=== PATIENT | female | born 1950 | race Caucasian/White ===

== ENCOUNTER 2022-04-16 15:34 | Emergency (ER) | payer MEDICARE, OTHER ==
[~2022-04-16 15:34] MED LIST: Iopamidol 370 76% 125 ML VIAL FS ONE
[2022-04-16 16:05] LABS: #Basophils 0.1 thou/uL (0.0-0.2); #Eosinphils 0.1 thou/uL (0.0-0.7); #Lymphocytes 1.4 thou/uL (1.20-3.40); #Monocytes 0.9 thou/uL (0.11-0.59); #Neutrophils 6.6 thou/uL (1.40-6.50); %Basophils 1.5 % (0.0-1.0); %Eosinophils 1.1 % (0.0-10.0); %Lymphocytes 15.6 % (21.0-51.0); %Monocytes 9.4 % (0.0-10.0); %Neutrophils 72.3 % (42.0-75.0); Hemoglobin 13.2 g/dL (12.0-16.0); Mean Corpuscular HGB CONC 31.2 g/dL (32.0-36.0); Mean Corpuscular Hemoglobin 29.8 pg (27.0-31.0); Mean Corpuscular Volume 95.5 fL (78.0-98.0); Mean Platelet Volume 6.7 fL (7.4-10.4); Platelet Count 305 thou/uL (130-400); Red Blood Cell (RBC) Count 4.45 mill/uL (4.20-5.40); White Blood Cell (WBC) Count 9.1 thou/uL (4.8-10.8)
[2022-04-16] MEDS ORDERED: methylPREDNISolone Sod Succ/PF 125 MG/2 ML VIAL ONE (16:15)
[2022-04-16 16:19] LABS: Base Excess-Venous 5.1 mmol/L (-2.0 to 3.0); Bicarbonate (HCO3v) 31.7 mmol/L (22.0-28.0); CO2 Tension (PvCO2) 52.8 mmHg (42.0-51.0); Calcium, Ionized 1.19 mmol/L (1.15-1.33); Chloride 108 mmol/L (98-107); Hemoglobin - Calc 15.4 g/dL (12.0-16.0); Potassium 4.1 mmol/L (3.5-5.1); Sodium 146 mmol/L (138-145); T. Carbon Dioxide 33.3 mmol/L (22.0-28.0); vO2 Saturation-calc 99.5 % (60.0-85.0)
[2022-04-16 16:21] LABS: ALT (SGPT) 18 U/L (8-55); AST (SGOT) 14 U/L (5-34); Alkaline Phosphatase 73 U/L (40-110); Anion Gap 14 mmol/L (10-20); BUN (Urea Nitrogen) 20 mg/dL (9.8-20.1); Bilirubin, Total 0.3 mg/dL (0.2-1.2); Calc. Creatinine Clearance 0 mL/min (70-130); Calcium 9.7 mg/dL (7.8-10.44); Carbon Dioxide 29 mmol/L (23-31); Chloride 105 mmol/L (98-107); Estimated GFR 68; Globulin 2.8 g/dL (2.4-3.5); Glucose 110 mg/dL (83-110); Magnesium 2.1 mg/dL (1.6-2.6); Potassium 4.2 mmol/L (3.5-5.1); Protein, Total 6.8 g/dL (5.8-8.1); Sodium 144 mmol/L (136-145)
[2022-04-16 16:39] LABS: CKMB 3.8 ng/mL (0-6.6)
[2022-04-16] MEDS ORDERED: Aspirin Chewable 81 MG TAB ONE (16:52)
[2022-04-16] MEDS ORDERED: Furosemide 40 MG/4 ML VIAL ONE (16:52)
[2022-04-16 21:30] LABS: SARS-CoV-2 NAA Rapid Test Not Detected (NotDetected)
[2022-04-16 22:28] LABS: Troponin I 0.048 ng/mL (< 0.028)
[2022-04-17] MEDS ORDERED: methylPREDNISolone Sod Succ/PF 125 MG/2 ML VIAL ONE (02:32)
[2022-04-17 05:41] LABS: Troponin I 0.031 ng/mL (< 0.028)
[2022-04-17] MEDS ORDERED: cefTRIAXone\\ROCEPHIN 1 GM VIAL ONE (08:28)
[2022-04-17] MEDS ORDERED: Sodium Chloride 0.9% 250 ML 250 ML ONE (08:28)
[2022-04-17] MEDS ORDERED: Azithromycin 500 MG VIAL ONE (08:28)
[2022-04-17] MEDS ORDERED: Sodium Chloride 0.9% 100 ML ONE (08:28)
[2022-04-17] MEDS ORDERED: Lidocaine 2% PF 100 mg/5 ml Syringe ONE (13:28)
== END 2022-04-17 14:24 | disposition short-term general hospital (02) ==
LOC: MADERS 15:34
DX: I50.9 Heart failure, unspecified (principal); J44.1 Chronic obstructive pulmonary disease with (acute) exacerbation; R91.1 Solitary pulmonary nodule; I47.29 Other ventricular tachycardia; R06.03 Acute respiratory distress; R77.8 Other specified abnormalities of plasma proteins; I44.7 Left bundle-branch block, unspecified; Z20.822 Contact with and (suspected) exposure to COVID-19; Z87.891 Personal history of nicotine dependence; Z79.899 Other long term (current) drug therapy
CPT/HCPCS: 71045; 71275; 80053; 82330; 82435; 82553; 82803; 83735; 83880; 84132; 84295; 84484 ×2; 85014; 85025; 87040; 93005 ×2; 96365; 96366; 96367; 96375; 96376; 99285; U0002; J0456; J0696; J1940; J2001; J2930; J3490; J7050; J7620; Q9967